=== PATIENT | male | born 1995 | race African-American/Black ===

== ENCOUNTER 2017-12-06 06:25 | Emergency (ER) | payer SELFPAY ==
[2017-12-06 07:13] VITALS: BP 130/85
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
== END 2017-12-06 07:13 | disposition home or self-care (01) ==
LOC: ED 06:25
DX: F19.10 Other psychoactive substance abuse, uncomplicated (principal); F17.200 Nicotine dependence, unspecified, uncomplicated
CPT/HCPCS: 99282